=== PATIENT | male | born 1980 | race Caucasian/White ===

== ENCOUNTER 2021-08-23 15:06 | Emergency (ER) | payer MEDICAID ==
[2021-08-23 15:58] VITALS: BP 124/88; PULSE 95
[2021-08-23] MEDS ORDERED: Sodium Chloride 0.9% 10 ML Syringe FLUSH PRN (16:06)
[2021-08-23] MEDS ORDERED: Ketorolac 30 MG/ML SDV IVPUSH ONE (16:06)
[2021-08-23] MEDS ORDERED: Sodium Chloride 0.9% 1,000 ML IV SCH (16:15)
[2021-08-23 16:48] LABS: ESTIMATED GFR 87 mL/min (>60)
== END 2021-08-23 17:26 | disposition home or self-care (01) ==
LOC: JP.ED 15:06
DX: T67.5XXA Heat exhaustion, unspecified, initial encounter (principal); Z79.899 Other long term (current) drug therapy
CPT/HCPCS: 36415; 80053; 83735; 85025; 96361; 96374; 99284; J1885; J7030